=== PATIENT | male | born 1970 | race Caucasian/White ===

== ENCOUNTER → 2020-06-07 | Outpatient (CLI) | payer BC ==
--- NOTE | 2020-06-07 16:42 | KCIC ---
2 view study of the cervical spine Clinical indications: Worsening bilateral lateral upper extremity numbness. Cervical disc disorder. FINDINGS: No acute fracture or discitis or lytic process or prevertebral soft tissue swelling is evident. There is straightening of the normal cervical lordosis which may be seen with muscle spasm. There is mild degenerative disc space narrowing and endplate spurring at C5-6 and C6-7. IMPRESSION: Possible muscle spasm. Mild degenerative cervical spondylosis. Electronically signed by: Del Mayes MD (06/07/2020 4:40 PM) [id number]
== END | disposition home or self-care (01) ==
LOC: KCIC 10:44
PROVIDERS: ATTEND Nurse Practitioner Gerontology
DX: M47.22 Other spondylosis with radiculopathy, cervical region (principal); M48.02 Spinal stenosis, cervical region; M40.50 Lordosis, unspecified, site unspecified
CPT/HCPCS: 72040